=== PATIENT | female | born 1985 ===

== ENCOUNTER 2018-08-11 20:26 | Emergency (ER) | payer OTHER ==
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
[2018-08-12 00:08] VITALS: BP 123/72
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
== END 2018-08-12 01:20 | disposition home or self-care (01) ==
LOC: ED 20:26
DX: M25.551 Pain in right hip (principal); M54.2 Cervicalgia; R07.89 Other chest pain; V87.7XXA Person injured in collision between other specified motor vehicles (traffic), initial encounter; Y93.89 Activity, other specified; Y92.488 Other paved roadways as the place of occurrence of the external cause; Y99.8 Other external cause status
CPT/HCPCS: 71046; 72040; 99284